=== PATIENT | male | born 1955 | race Hispanic/Latino ===

== ENCOUNTER → 2021-12-27 | Outpatient (CLI) | payer OTHER ==
[2021-12-27 12:28] LABS: CREATININE 1.4 mg/dL (0.5-1.5)
== END | disposition home or self-care (01) ==
LOC: LAB 10:21
PROVIDERS: ATTEND Internal Medicine Cardiovascular Disease
DX: L98.499 Non-pressure chronic ulcer of skin of other sites with unspecified severity (principal); I73.9 Peripheral vascular disease, unspecified
CPT/HCPCS: 36415; 80048

== ENCOUNTER → 2021-12-28 | Outpatient (CLI) | payer OTHER ==
[~2021-12-28] MED LIST: IOHEXOL 350 MG/ML 100ML INFUS..BTL IV ONE
== END | disposition home or self-care (01) ==
LOC: RAH 08:13
PROVIDERS: ATTEND Internal Medicine Cardiovascular Disease
DX: I73.9 Peripheral vascular disease, unspecified (principal); I70.0 Atherosclerosis of aorta; I70.8 Atherosclerosis of other arteries; Z89.611 Acquired absence of right leg above knee
CPT/HCPCS: 75635; Q9967 ×2

== ENCOUNTER → 2022-07-21 | Outpatient (CLI) | payer OTHER | END | disposition home or self-care (01) | LOC: SHCH 13:07 | PROVIDERS: ATTEND Internal Medicine Cardiovascular Disease | DX: I08.1 Rheumatic disorders of both mitral and tricuspid valves (principal); I73.9 Peripheral vascular disease, unspecified | CPT/HCPCS: 93306 ==

== ENCOUNTER 2023-02-21 07:16 | Day surgery (SDC) | payer OTHER ==
[2023-02-21] VITALS (14 sets, daily range): BP systolic 96–135; BP diastolic 31–63; PULSE 59–80; RESP 12–16
[~2023-02-21 07:16] MED LIST changes: +ASPI-1197 PO; +DOLU1TAB2 PO; +GABA-534 PO; -IOHEXOL 350 MG/ML 100ML INFUS..BTL IV ONE; +MILK150C2 PO; +MULT-1296 PO; +NINT150C PO; +OMEP20TA20 PO; +PREVAGEN PO; +PROBIOTIC PO; +RIVA2.5T PO; +ROSU20TA73 PO
[2023-02-21] MEDS ORDERED: PROPOFOL 10 MG/ML 20ML VIAL IV ONE (10:29)
[2023-02-21] MEDS ORDERED: EPHEDRINE SULFATE 50 MG/ML AMPULE ONE (10:49)
== END 2023-02-21 12:30 | disposition home or self-care (01) ==
LOC: DAH 07:16 → ENDO 07:16
PROVIDERS: ATTEND Internal Medicine
DX: R19.7 Diarrhea, unspecified (principal); R10.30 Lower abdominal pain, unspecified; K21.00 Gastro-esophageal reflux disease with esophagitis, without bleeding; K63.89 Other specified diseases of intestine; K29.50 Unspecified chronic gastritis without bleeding; E78.5 Hyperlipidemia, unspecified; E84.9 Cystic fibrosis, unspecified; Z79.82 Long term (current) use of aspirin; Z79.01 Long term (current) use of anticoagulants; Z79.899 Other long term (current) drug therapy
CPT/HCPCS: 43239; 45380; J3490; J2704; A4620; A4215; A4223; A7002; A4222; A4221; A4663; J7030; A4606

== ENCOUNTER 2023-09-05 06:58 | Day surgery (SDC) | payer OTHER ==
[2023-09-03 12:26] LABS: BASOPHILS # (AUTO) 0.02 K/uL (0.00-0.20); BASOPHILS % (AUTO) 0.2 % (0.0-5.0); EOSINOPHILS # (AUTO) 0.02 K/uL (0.00-0.70); EOSINOPHILS % (AUTO) 0.2 % (0.0-8.0); HEMATOCRIT 41.1 % (42-54); IMMATURE GRANULOCYTE ABSOLUTE 0.05 K/uL (0-1); LYMPHOCYTES # (AUTO) 2.1 K/uL (1.0-4.8); MEAN CORPUSCULAR HEMOGLOBIN 31.1 pg (27.0-33.0); MEAN CORPUSCULAR HGB CONC 31.6 g/dL (32.0-36.0); MEAN CORPUSCULAR VOLUME 98.3 fL (79-99); MONOCYTES # (AUTO) 0.6 K/uL (0.1-1.0); MONOCYTES % (AUTO) 4.8 % (3.0-13.0); NEUTROPHILS # (AUTO) 8.8 K/uL (1.8-7.7); NEUTROPHILS % (AUTO) 76.4 % (40.0-77.0); NUCLEATED RED BLOOD CELLS 0.2 % (0.0-0.19); PLATELET COUNT (AUTO) 286 K/uL (130-400); RED BLOOD CELL COUNT(AUTO) 4.18 MIL/uL (4.50-6.20); RED CELL DISTRIBUTION WIDTH 13.8 % (11.0-15.5); WHITE BLOOD COUNT (AUTO) 11.6 K/uL (4.8-10.8)
[2023-09-03 12:37] LABS: CREATININE 0.9 mg/dL (0.5-1.3); POTASSIUM 4.4 mmol/L (3.5-5.1)
[2023-09-03 12:39] LABS: INR 1.01 (0.85-1.15); PROTHROMBIN TIME 11.9 SEC (9.6-11.6)
[2023-09-03 12:40] LABS: PARTIAL THROMBOPLASTIN TIME 24.8 SEC (26.3-35.5)
[2023-09-03 12:57] LABS: B-TYPE NATRIURETIC PEPTIDE 711 pg/mL (0-100)
[2023-09-03 13:04] VITALS: BP 138/58; PULSE 82; RESP 21
[2023-09-05] VITALS (7 sets, daily range): BP systolic 90–151; BP diastolic 35–78; PULSE 53–85; RESP 15–19
[~2023-09-05] VITALS: Ht 170.2 cm; Wt 53.3 kg
[~2023-09-05 06:58] MED LIST changes: +BUPR1TAB44 SL; +CENTRUM SILVER PO; -MILK150C2 PO; +MILK500C PO; -MULT-1296 PO; +PREVAGEN ES PO; -PREVAGEN PO; -PROBIOTIC PO; +PROBIOTICS PO
[2023-09-05] MEDS: 0.9%NACL 1000ML 1,000 ML IV ONE (08:32)
[2023-09-05] MEDS ORDERED: LIDOCAINE HCL 400MG/20ML VIAL ONE (12:33)
[2023-09-05] MEDS ORDERED: FENTANYL CITRATE PF 50 MCG/1 ML 2ML VIAL ONE (12:33)
[2023-09-05] MEDS ORDERED: HEPARIN 10,000 UNIT/10ML (1,000 UNIT/ML) VIAL ONE (12:34)
[2023-09-05] MEDS ORDERED: MIDAZOLAM HCL 1 MG/ML 2ML VIAL ONE (12:34)
[2023-09-05] MEDS ORDERED: DEXTROSE 50%-WATER 50 ML DISP.SYRIN IV PRN (13:30)
[2023-09-05] MEDS ORDERED: GLUCAGON 1MG KIT 1 MG ML IM PRN (13:30)
[2023-09-05] MEDS ORDERED: IOHEXOL 350 MG/ML 100ML INFUS..BTL IV ONE (14:21)
== END 2023-09-05 16:43 | disposition home or self-care (01) ==
LOC: DAH 06:58
PROVIDERS: ATTEND Internal Medicine Cardiovascular Disease
DX: I27.20 Pulmonary hypertension, unspecified (principal); I25.119 Atherosclerotic heart disease of native coronary artery with unspecified angina pectoris; J84.10 Pulmonary fibrosis, unspecified; L98.499 Non-pressure chronic ulcer of skin of other sites with unspecified severity; I73.9 Peripheral vascular disease, unspecified; I49.3 Ventricular premature depolarization; E78.2 Mixed hyperlipidemia; I11.0 Hypertensive heart disease with heart failure; I50.22 Chronic systolic (congestive) heart failure; B20 Human immunodeficiency virus [HIV] disease; Z87.891 Personal history of nicotine dependence; Z82.3 Family history of stroke; Z82.49 Family history of ischemic heart disease and other diseases of the circulatory system; Z79.82 Long term (current) use of aspirin; Z79.899 Other long term (current) drug therapy; Z95.1 Presence of aortocoronary bypass graft; Z98.890 Other specified postprocedural states
CPT/HCPCS: 80048; 83880; 85025; 85610; 85730; 36415; 71045; 93005; 93451; 75574; C1894 ×2; C1769 ×2; J3490; J7030; J1644; Q9967; A4215; A4222; A4221; A4663; A4216; A4606; A4223 ×3; J2250; J3010